=== PATIENT | female | born 1980 | race Caucasian/White ===

== ENCOUNTER 2020-09-13 15:12 | Emergency (ER) | payer BC, MEDICAID, SELFPAY ==
[~2020-09-13] VITALS: Ht 152.4 cm; Wt 56.7 kg
[2020-09-13 15:14] VITALS: BP 140/85; Ht 152.4 cm; Wt 56.7 kg
== END 2020-09-13 16:31 | disposition home or self-care (01) ==
LOC: ED 15:12
DX: J02.9 Acute pharyngitis, unspecified (principal); M79.10 Myalgia, unspecified site; Z20.828 Contact with and (suspected) exposure to other viral communicable diseases
CPT/HCPCS: U0003